=== PATIENT | female | born 1990 | race Caucasian/White ===

== ENCOUNTER 2017-08-02 21:08 | Emergency (ER) | payer OTHER ==
[2017-08-02 21:28] VITALS: RESP 18; TEMP 97.8
[2017-08-02 21:50] LABS: Appearance,Urine Cloudy (Clear); Bacteria,Urine Few /hpf; Bilirubin,Urine Negative (Negative); Blood,Urine Trace (Negative); Color,Urine Yellow; Glucose,Urine (UA) Negative (Negative); Ketones,Urine Negative (Negative); Leukocyte Esterase,Urine Small (Negative); Mucus,Urine Occasional /hpf; Nitrite,Urine Positive (Negative); PH, Urine 5.5 (5.0-8.0); Protein,Urine 1+ (Negative); RBC,Urine 4 /hpf (0-5); Specific Gravity,Urine 1.025 (1.001-1.035); Squamous Epithelial Cell,Urine 4 /hpf (0-4); Urobilinogen,Urine <2.0 mg/dL (<2.0); WBC,Urine 12 /hpf (0-5)
--- NOTE | 2017-08-02 22:49 | ED ---
Abdominal Pain HPI - General Chief Complaint: Abdominal Pain Stated Complaint: abdominal pain Time Seen by Provider: 08/02/17 22:31 Source: patient Mode of arrival: ambulatory Limitations: no limitations - History of Present Illness Initial Comments: 26-year-old female patient presented to the emergency department today for complaints of midepigastric abdominal pain. Patient states she has been having this pain on and off for the last 2-3 weeks. Patient states that the pain as a cramping type sensation. States that she does become nauseated and has decreased appetite when the pain is present. Patient states the pain does start after eating. Patient denies any vomiting with this. States she has alternating constipation and diarrhea. Denies any hematochezia or melena. Patient states that she has been urinating frequently. She denies any hematuria or dysuria. Denies any fevers or chills. Patient denies any recent rash, shortness breath, chest pain, back pain, numbness, tingling, dizziness, weakness, headache, visual changes, or any other complaints. - Related Data Previous Rx's Medication Instructions Recorded Pantoprazole Sodium [Protonix] 40 mg PO DAILY #30 tablet. 08/03/17 Sulfamethoxazole/Trimethoprim 1 each PO BID #14 tablet 08/03/17 [Bactrim DS 800-160 mg] Allergies Allergy/AdvReac Type Severity Reaction Status Date / Time No Known Allergies Allergy Verified 08/02/17 22:27 Review of Systems ROS Statement: Those systems with pertinent positive or pertinent negative responses have been documented in the HPI. ROS Other: All systems not noted in ROS Statement are negative. 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 Vital signs upon presentation are temperature 97.8F, pulse 94, respirations 18, blood pressure 159/90, pulse ox 98% on room air.) Eye exam: Present: normal appearance, PERRL, EOMI. Absent: scleral icterus, conjunctival injection, periorbital swelling ENT exam: Present: normal exam, normal oropharynx, mucous membranes moist Respiratory exam: Present: normal lung sounds bilaterally. Absent: respiratory distress, wheezes, rales, rhonchi, stridor Cardiovascular Exam: Present: regular rate, normal rhythm, normal heart sounds. Absent: systolic murmur, diastolic murmur, rubs, gallop, clicks GI/Abdominal exam: Present: soft, tenderness (Midepigastric tenderness), normal bowel sounds. Absent: distended, guarding, rebound, rigid Neurological exam: Present: alert, oriented X3, CN II-XII intact Psychiatric exam: Present: normal affect, normal mood Skin exam: Present: warm, dry, intact, normal color. Absent: rash Course Vital Signs 08/02/17 08/02/17 08/03/17 21:23 23:15 00:51 Temperature 97.8 F Pulse Rate 94 83 Respiratory 18 18 18 Rate Blood Pressure 159/90 142/61 O2 Sat by Pulse 98 98 Oximetry Medical Decision Making - Medical Decision Making 26-year-old female patient presented to the emergency department today with complaints of upper abdominal pain that is worse with eating. Patient also is experiencing some mild nausea. Physical examination did reveal some mild midepigastric tenderness. Labs reviewed and are unremarkable. Amylase and lipase were normal. Liver enzymes are normal. Patient is feeling somewhat better after receiving medications in the emergency department. I did discuss findings and results with the patient. I discussed as her labs are normal that her symptoms are most likely related to a gastritis. We will give her proton pump inhibitor to take for 30 days. She is instructed to follow-up with her primary care physician for recheck in 1-2 days. Return parameters were discussed in detail. She verbalizes understanding and agrees with this plan. - Lab Data Result diagrams: 08/02/17 23:09 08/02/17 23:09 Lab Results 08/02/17 08/02/17 08/02/17 Range/Units 21:28 21:28 23:09 WBC (3.8-10.6) k/uL RBC (3.80-5.40) m/uL Hgb (11.4-16.0) gm/dL Hct (34.0-46.0) % MCV (80.0-100.0) fL MCH (25.0-35.0) pg MCHC (31.0-37.0) g/dL RDW (11.5-15.5) % Plt Count (150-450) k/uL Neutrophils % % Lymphocytes % % Monocytes % % Eosinophils % % Basophils % % Neutrophils # (1.3-7.7) k/uL Lymphocytes # (1.0-4.8) k/uL Monocytes # (0-1.0) k/uL Eosinophils # (0-0.7) k/uL Basophils # (0-0.2) k/uL Sodium 144 (137-145) mmol/L Potassium 4.2 (3.5-5.1) mmol/L Chloride 101 (98-107) mmol/L Carbon Dioxide 27 (22-30) mmol/L Anion Gap 16 mmol/L BUN 16 (7-17) mg/dL Creatinine 0.78 (0.52-1.04) mg/dL Est GFR (CKD-EPI)AfAm >90 (>60 ml/min/1.73 sqM) Est GFR (CKD-EPI)NonAf >90 (>60 ml/min/1.73 sqM) Glucose 100 H (74-99) mg/dL Calcium 9.9 (8.4-10.2) mg/dL Total Bilirubin 0.6 (0.2-1.3) mg/dL AST 25 (14-36) U/L ALT 33 (9-52) U/L Alkaline Phosphatase 108 (38-126) U/L Total Protein 7.2 (6.3-8.2) g/dL Albumin 4.5 (3.5-5.0) g/dL Amylase 47 (30-110) U/L Lipase 85 (23-300) U/L Urine Color Yellow Urine Appearance Cloudy H (Clear) Urine pH 5.5 (5.0-8.0) Ur Specific [place] 1.025 (1.001-1.035) Urine Protein 1+ H (Negative) Urine Glucose (UA) Negative (Negative) Urine Ketones Negative (Negative) Urine Blood Trace H (Negative) Urine Nitrite Positive H (Negative) Urine Bilirubin Negative (Negative) Urine Urobilinogen <2.0 (<2.0) mg/dL Ur Leukocyte Esterase Small H (Negative) Urine RBC 4 (0-5) /hpf Urine WBC 12 H (0-5) /hpf Ur Squamous Epith Cells 4 (0-4) /hpf Urine Bacteria Few H (None) /hpf Urine Mucus Occasional H (None) /hpf Urine HCG, Qual Not Detected (Not Detectd) 08/02/17 Range/Units 23:09 WBC 8.3 (3.8-10.6) k/uL RBC 4.37 (3.80-5.40) m/uL Hgb 12.4 (11.4-16.0) gm/dL Hct 36.4 (34.0-46.0) % MCV 83.3 (80.0-100.0) fL MCH 28.4 (25.0-35.0) pg MCHC 34.1 (31.0-37.0) g/dL RDW 13.3 (11.5-15.5) % Plt Count 255 (150-450) k/uL Neutrophils % 65 % Lymphocytes % 26 % Monocytes % 5 % Eosinophils % 2 % Basophils % 0 % Neutrophils # 5.5 (1.3-7.7) k/uL Lymphocytes # 2.1 (1.0-4.8) k/uL Monocytes # 0.4 (0-1.0) k/uL Eosinophils # 0.2 (0-0.7) k/uL Basophils # 0.0 (0-0.2) k/uL Sodium (137-145) mmol/L Potassium (3.5-5.1) mmol/L Chloride (98-107) mmol/L Carbon Dioxide (22-30) mmol/L Anion Gap mmol/L BUN (7-17) mg/dL Creatinine (0.52-1.04) mg/dL Est GFR (CKD-EPI)AfAm (>60 ml/min/1.73 sqM) Est GFR (CKD-EPI)NonAf (>60 ml/min/1.73 sqM) Glucose (74-99) mg/dL Calcium (8.4-10.2) mg/dL Total Bilirubin (0.2-1.3) mg/dL AST (14-36) U/L ALT (9-52) U/L Alkaline Phosphatase (38-126) U/L Total Protein (6.3-8.2) g/dL Albumin (3.5-5.0) g/dL Amylase (30-110) U/L Lipase (23-300) U/L Urine Color Urine Appearance (Clear) Urine pH (5.0-8.0) Ur Specific [place] (1.001-1.035) Urine Protein (Negative) Urine Glucose (UA) (Negative) Urine Ketones (Negative) Urine Blood (Negative) Urine Nitrite (Negative) Urine Bilirubin (Negative) Urine Urobilinogen (<2.0) mg/dL Ur Leukocyte Esterase (Negative) Urine RBC (0-5) /hpf Urine WBC (0-5) /hpf Ur Squamous Epith Cells (0-4) /hpf Urine Bacteria (None) /hpf Urine Mucus (None) /hpf Urine HCG, Qual (Not Detectd) - Radiology Data Radiology results: report reviewed, image reviewed 3 views of the abdomen were obtained. Bowel gas pattern is normal. There is no sign of intestinal obstruction or pneumoperitoneum. Fecal pattern is normal. Lung bases are clear. There are no pathologic calcifications. Impression by Dr. Barclay shows nonacute abdomen with no change. Disposition Clinical Impression: Urinary tract infection, Abdominal pain Disposition: HOME SELF-CARE Condition: Good Instructions: Gastritis (ED), Urinary Tract Infection in Women (ED), Abdominal Pain (ED) Additional Instructions: Avoid spicy or greasy foods. Avoid caffeine or sodas. Take medications as directed. Follow-up with your primary care physician for recheck in 1-2 days. Return here immediately for any new, worsening, or concerning symptoms. Prescriptions: Pantoprazole Sodium [Protonix] 40 mg PO DAILY #30 tablet. Sulfamethoxazole/Trimethoprim [Bactrim DS 800-160 mg] 1 each PO BID #14 tablet Is patient prescribed a controlled substance at d/c from ED?: No Referrals: Kendell Foote MD [Primary Care Provider] - 1-2 days Time of Disposition: 00:58
[2017-08-02 23:20] LABS: Basophils % (A) 0 %; Eosinophils # (A) 0.2 k/uL (0-0.7); Eosinophils % (A) 2 %; HCT 36.4 % (34.0-46.0); HGB 12.4 gm/dL (11.4-16.0); Lymphocytes # (A) 2.1 k/uL (1.0-4.8); Lymphocytes % (A) 26 %; MCH 28.4 pg (25.0-35.0); MCHC 34.1 g/dL (31.0-37.0); MCV 83.3 fL (80.0-100.0); Mean Platelet Volume 7.3; Monocytes # (A) 0.4 k/uL (0-1.0); Monocytes % (A) 5 %; Neutrophils # (A) 5.5 k/uL (1.3-7.7); Neutrophils % (A) 65 %; Platelet Count 255 k/uL (150-450); RBC 4.37 m/uL (3.80-5.40); RDW 13.3 % (11.5-15.5); WBC 8.3 k/uL (3.8-10.6)
[2017-08-02 23:47] LABS: ALT 33 U/L (9-52); AST 25 U/L (14-36); Albumin 4.5 g/dL (3.5-5.0); Alkaline Phosphatase 108 U/L (38-126); Amylase 47 U/L (30-110); Anion Gap 16 mmol/L; Blood Urea Nitrogen 16 mg/dL (7-17); Calcium 9.9 mg/dL (8.4-10.2); Carbon Dioxide 27 mmol/L (22-30); Chloride 101 mmol/L (98-107); Glucose 100 mg/dL (74-99); Lipase 85 U/L (23-300); Potassium 4.2 mmol/L (3.5-5.1); Sodium 144 mmol/L (137-145); Total Bilirubin 0.6 mg/dL (0.2-1.3); Total Protein 7.2 g/dL (6.3-8.2)
--- NOTE | 2017-08-03 00:04 | XR ---
EXAMINATION TYPE: XR KUB DATE OF EXAM: 08/02/2017 COMPARISON: 08/05/2005 HISTORY: Pain TECHNIQUE: 3 views FINDINGS: Bowel gas pattern is normal. There is no sign of intestinal obstruction or pneumoperitoneum . Fecal pattern is normal. Lung bases are clear. There are no pathologic calcifications. IMPRESSION: Nonacute abdomen. No change.
[2017-08-03 00:52] VITALS: BP 142/61; PULSE 83
[2017-08-03] MEDS ORDERED: cefTRIAXone IN SWFI 1,000 MG/10 ML SYRINGE IVP STA (00:56)
== END 2017-08-03 01:26 | disposition home or self-care (01) ==
LOC: EC 21:08
DX: N39.0 Urinary tract infection, site not specified (principal); R10.13 Epigastric pain; R11.0 Nausea; K59.00 Constipation, unspecified; R19.7 Diarrhea, unspecified; R63.8 Other symptoms and signs concerning food and fluid intake; E66.9 Obesity, unspecified; Z98.890 Other specified postprocedural states; Z68.42 Body mass index [BMI] 45.0-49.9, adult
CPT/HCPCS: 36415; 80053; 82150; 83690; 85025; 81001; 81025; 74018; 99284; 96374; J0696

== ENCOUNTER 2017-11-04 21:19 | Emergency (ER) | payer OTHER ==
[2017-11-04] MEDS ORDERED: IPRATROPIUM-ALBUTEROL 3 ML NEB INHALATION STA (22:27)
[2017-11-04] MEDS ORDERED: methylPREDNISolone SOD SUCCI 125 MG/2 ML VIAL IV STA (22:27)
[2017-11-04] MEDS ORDERED: SODIUM CHLORIDE 0.9% 500 ML IV STA (22:27)
--- NOTE | 2017-11-04 22:30 | ED ---
SOB HPI - General Chief Complaint: Shortness of Breath Stated Complaint: Cough Time Seen by Provider: 11/04/17 22:11 Source: patient Mode of arrival: ambulatory Limitations: no limitations - History of Present Illness Initial Comments: 26-year-old female patient presents to the emergency department today for evaluation of cough and difficulty breathing. Patient states that she has had symptoms for the last 2 weeks. Her cough seems to be getting worse. States that she has been seen and evaluated twice at urgent care and has been on 2 courses of Keflex which she has completed. Patient states she did complete one course of steroids, and has had no improvement in her symptoms. Patient states that now she feels chest heaviness and difficulty breathing. States that it gets worse with activity. Denies any fevers or chills. States that she has lost her voice. Patient is also reporting no period since April, states she has taken tests which have been negative. Patient's that she does not have insurance [facility] has no primary care physician to follow-up with. Patient denies any recent rash, chest pain, abdominal pain, nausea, vomiting, diarrhea, constipation, back pain, numbness, tingling, dizziness, weakness, hematuria, dysuria, urinary urgency, urinary frequency, headache, visual changes , or any other complaints. - Related Data Previous Rx's Medication Instructions Recorded Pantoprazole Sodium [Protonix] 40 mg PO DAILY #30 tablet. 08/03/17 Sulfamethoxazole/Trimethoprim 1 each PO BID #14 tablet 08/03/17 [Bactrim DS 800-160 mg] Azithromycin [Zithromax Z-pack] 0 mg PO DIRECTED #6 tab 11/05/17 Promethaz-Cod 6.25-10 mg/5 ml 5 ml PO Q4HR PRN 3 Days #90 ml 11/05/17 [Phenergan with Codeine] predniSONE 50 mg PO DAILY #5 tablet 11/05/17 Allergies Allergy/AdvReac Type Severity Reaction Status Date / Time No Known Allergies Allergy Verified 11/04/17 22:04 Review of Systems ROS Statement: Those systems with pertinent positive or pertinent negative responses have been documented in the HPI. ROS Other: All systems not noted in ROS Statement are negative. 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 Vital signs upon presentation are temperature 98.5, pulse 104, respirations 20, blood pressure 135/80, pulse ox 94% on room air.) Eye exam: Present: normal appearance, PERRL, EOMI. Absent: scleral icterus, conjunctival injection, periorbital swelling ENT exam: Present: normal exam, normal oropharynx, mucous membranes moist, TM's normal bilaterally Neck exam: Present: normal inspection. Absent: tenderness, meningismus, lymphadenopathy Respiratory exam: Present: wheezes (Tight expiratory wheezing to all posterior lung espinoza). Absent: respiratory distress, rales, rhonchi, stridor Cardiovascular Exam: Present: normal rhythm, tachycardia, normal heart sounds. Absent: systolic murmur, diastolic murmur, rubs, gallop, clicks GI/Abdominal exam: Present: soft, normal bowel sounds. Absent: distended, tenderness, guarding, rebound, rigid Neurological exam: Present: alert, oriented X3, CN II-XII intact Psychiatric exam: Present: normal affect, normal mood Skin exam: Present: warm, dry, intact, normal color. Absent: rash Course Vital Signs 11/04/17 11/04/17 11/04/17 22:01 22:45 22:51 Temperature 98.5 F Pulse Rate 104 H 104 H 108 H Respiratory 20 Rate Blood Pressure 135/80 O2 Sat by Pulse 94 L Oximetry 11/05/17 00:39 Temperature 97.1 F L Pulse Rate 100 Respiratory 24 Rate Blood Pressure 123/72 O2 Sat by Pulse 99 Oximetry Medical Decision Making - Medical Decision Making 26-year-old female patient presented to the emergency department today for complaints of shortness of breath and cough. Physical examination did reveal tight expiratory wheezing to all posterior lung espinoza. Labs reviewed and were unremarkable. Chest x-ray was obtained and showed no acute cardiopulmonary process. Given patient's symptoms we will treat her for acute bronchitis with prednisone, azithromycin, and cough medication. She does have an inhaler at home which I told her to use 2 puffs every 4-6 hours as needed. She'll be given cough medication as well. She is instructed to follow-up with her primary care physician for recheck in 1-2 days. Return parameters discussed in detail. She verbalizes understanding and agrees with this plan. - Lab Data Result diagrams: 11/04/17 23:50 11/04/17 23:50 Lab Results 11/04/17 11/04/17 11/04/17 Range/Units 23:45 23:45 23:50 WBC 10.7 H (3.8-10.6) k/uL RBC 4.57 (3.80-5.40) m/uL Hgb 12.2 (11.4-16.0) gm/dL Hct 37.6 (34.0-46.0) % MCV 82.4 (80.0-100.0) fL MCH 26.7 (25.0-35.0) pg MCHC 32.4 (31.0-37.0) g/dL RDW 14.2 (11.5-15.5) % Plt Count 222 (150-450) k/uL Neutrophils % 63 % Lymphocytes % 28 % Monocytes % 4 % Eosinophils % 3 % Basophils % 0 % Neutrophils # 6.7 (1.3-7.7) k/uL Lymphocytes # 3.0 (1.0-4.8) k/uL Monocytes # 0.5 (0-1.0) k/uL Eosinophils # 0.3 (0-0.7) k/uL Basophils # 0.0 (0-0.2) k/uL D-Dimer (<0.60) mg/L FEU Sodium (137-145) mmol/L Potassium (3.5-5.1) mmol/L Chloride (98-107) mmol/L Carbon Dioxide (22-30) mmol/L Anion Gap mmol/L BUN (7-17) mg/dL Creatinine (0.52-1.04) mg/dL Est GFR (CKD-EPI)AfAm (>60 ml/min/1.73 sqM) Est GFR (CKD-EPI)NonAf (>60 ml/min/1.73 sqM) Glucose (74-99) mg/dL Calcium (8.4-10.2) mg/dL Total Bilirubin (0.2-1.3) mg/dL AST (14-36) U/L ALT (9-52) U/L Alkaline Phosphatase (38-126) U/L Total Protein (6.3-8.2) g/dL Albumin (3.5-5.0) g/dL Urine Color Yellow Urine Appearance Clear (Clear) Urine pH 5.5 (5.0-8.0) Ur Specific [place] 1.022 (1.001-1.035) Urine Protein Trace H (Negative) Urine Glucose (UA) Negative (Negative) Urine Ketones Negative (Negative) Urine Blood Negative (Negative) Urine Nitrite Negative (Negative) Urine Bilirubin Negative (Negative) Urine Urobilinogen 4.0 (<2.0) mg/dL Ur Leukocyte Esterase Moderate H (Negative) Urine RBC 2 (0-5) /hpf Urine WBC 7 H (0-5) /hpf Ur Squamous Epith Cells 4 (0-4) /hpf Urine Mucus Rare H (None) /hpf Urine HCG, Qual Not Detected (Not Detectd) 11/04/17 11/04/17 Range/Units 23:50 23:50 WBC (3.8-10.6) k/uL RBC (3.80-5.40) m/uL Hgb (11.4-16.0) gm/dL Hct (34.0-46.0) % MCV (80.0-100.0) fL MCH (25.0-35.0) pg MCHC (31.0-37.0) g/dL RDW (11.5-15.5) % Plt Count (150-450) k/uL Neutrophils % % Lymphocytes % % Monocytes % % Eosinophils % % Basophils % % Neutrophils # (1.3-7.7) k/uL Lymphocytes # (1.0-4.8) k/uL Monocytes # (0-1.0) k/uL Eosinophils # (0-0.7) k/uL Basophils # (0-0.2) k/uL D-Dimer 0.34 (<0.60) mg/L FEU Sodium 141 (137-145) mmol/L Potassium 4.0 (3.5-5.1) mmol/L Chloride 106 (98-107) mmol/L Carbon Dioxide 25 (22-30) mmol/L Anion Gap 10 mmol/L BUN 12 (7-17) mg/dL Creatinine 0.70 (0.52-1.04) mg/dL Est GFR (CKD-EPI)AfAm >90 (>60 ml/min/1.73 sqM) Est GFR (CKD-EPI)NonAf >90 (>60 ml/min/1.73 sqM) Glucose 103 H (74-99) mg/dL Calcium 9.5 (8.4-10.2) mg/dL Total Bilirubin 0.6 (0.2-1.3) mg/dL AST 22 (14-36) U/L ALT 37 (9-52) U/L Alkaline Phosphatase 115 (38-126) U/L Total Protein 7.1 (6.3-8.2) g/dL Albumin 4.4 (3.5-5.0) g/dL Urine Color Urine Appearance (Clear) Urine pH (5.0-8.0) Ur Specific [place] (1.001-1.035) Urine Protein (Negative) Urine Glucose (UA) (Negative) Urine Ketones (Negative) Urine Blood (Negative) Urine Nitrite (Negative) Urine Bilirubin (Negative) Urine Urobilinogen (<2.0) mg/dL Ur Leukocyte Esterase (Negative) Urine RBC (0-5) /hpf Urine WBC (0-5) /hpf Ur Squamous Epith Cells (0-4) /hpf Urine Mucus (None) /hpf Urine HCG, Qual (Not Detectd) - EKG Data -: EKG Interpreted by Co EKG Comments: EKG obtained at 2356 shows normal sinus rhythm with ventricular rate of 94, ID interval 160, QRS duration 70, QT 346, QTc 432. No evidence of ST elevation or depression. - Radiology Data Radiology results: report reviewed, image reviewed Two-view x-ray of the chest was obtained. Heart and mediastinum are normal. Lungs are clear. Diaphragm is normal. Bony thorax appears normal. Impression by Dr. Barclay shows normal chest. Disposition Clinical Impression: Acute bronchitis Disposition: HOME SELF-CARE Condition: Good Instructions: Acute Bronchitis (ED) Additional Instructions: Use home inhaler 2 puffs every 4 hours. Complete medications as directed. Follow-up with the primary care physician or the [facility] for recheck in 1- 2 days. Return here immediately for any new, worsening, or concerning symptoms. [facility] [address] [address] Prescriptions: Azithromycin [Zithromax Z-pack] 0 mg PO DIRECTED #6 tab predniSONE 50 mg PO DAILY #5 tablet Promethaz-Cod 6.25-10 mg/5 ml [Phenergan with Codeine] 5 ml PO Q4HR PRN 3 Days # 90 ml PRN Reason: Cough Is patient prescribed a controlled substance at d/c from ED?: Yes When asked, does pt state using other controlled substances?: No If prescribed controlled substance>3 days was MAPS reviewed?: Prescribed <3 Days Referrals: Kendell Foote MD [Primary Care Provider] - 1-2 days [facility] [[facility] - 1-2 days Time of Disposition: 00:58
[2017-11-04 23:52] LABS: Appearance,Urine Clear (Clear); Bilirubin,Urine Negative (Negative); Blood,Urine Negative (Negative); Color,Urine Yellow; Glucose,Urine (UA) Negative (Negative); Ketones,Urine Negative (Negative); Leukocyte Esterase,Urine Moderate (Negative); Mucus,Urine Rare /hpf; Nitrite,Urine Negative (Negative); PH, Urine 5.5 (5.0-8.0); Protein,Urine Trace (Negative); RBC,Urine 2 /hpf (0-5); Specific Gravity,Urine 1.022 (1.001-1.035); Squamous Epithelial Cell,Urine 4 /hpf (0-4); WBC,Urine 7 /hpf (0-5)
[2017-11-05 00:03] LABS: Basophils % (A) 0 %; Eosinophils # (A) 0.3 k/uL (0-0.7); Eosinophils % (A) 3 %; HCT 37.6 % (34.0-46.0); HGB 12.2 gm/dL (11.4-16.0); Lymphocytes % (A) 28 %; MCH 26.7 pg (25.0-35.0); MCHC 32.4 g/dL (31.0-37.0); MCV 82.4 fL (80.0-100.0); Mean Platelet Volume 7.2; Monocytes # (A) 0.5 k/uL (0-1.0); Monocytes % (A) 4 %; Neutrophils # (A) 6.7 k/uL (1.3-7.7); Neutrophils % (A) 63 %; Platelet Count 222 k/uL (150-450); RBC 4.57 m/uL (3.80-5.40); RDW 14.2 % (11.5-15.5); WBC 10.7 k/uL (3.8-10.6)
--- NOTE | 2017-11-05 00:10 | XR ---
EXAMINATION TYPE: XR chest 2V DATE OF EXAM: 11/05/2017 COMPARISON: NONE HISTORY: Cough TECHNIQUE: Frontal and lateral views of the chest are obtained. FINDINGS: Heart and mediastinum are normal. Lungs are clear. Diaphragm is normal. Bony thorax appear s normal. IMPRESSION: Normal chest
[2017-11-05 00:11] LABS: ALT 37 U/L (9-52); AST 22 U/L (14-36); Albumin 4.4 g/dL (3.5-5.0); Alkaline Phosphatase 115 U/L (38-126); Anion Gap 10 mmol/L; Blood Urea Nitrogen 12 mg/dL (7-17); Calcium 9.5 mg/dL (8.4-10.2); Carbon Dioxide 25 mmol/L (22-30); Chloride 106 mmol/L (98-107); Glucose 103 mg/dL (74-99); Sodium 141 mmol/L (137-145); Total Bilirubin 0.6 mg/dL (0.2-1.3); Total Protein 7.1 g/dL (6.3-8.2)
[2017-11-05 00:43] VITALS: BP 123/72; PULSE 100; RESP 24; TEMP 97.1
[2017-11-05] MEDS ORDERED: PROMETHAZ-COD 6.25-10 MG/5 ML 5 ML CUP PO STA (00:55)
== END 2017-11-05 01:07 | disposition home or self-care (01) ==
LOC: EC 21:19
DX: J20.9 Acute bronchitis, unspecified (principal); R00.0 Tachycardia, unspecified
CPT/HCPCS: 36415; 94640; 93005; 85379; 80053; 85025; 81001; 81025; 71046; 99285; 96374; J2930

== ENCOUNTER 2018-11-26 15:38 | Emergency (ER) | payer OTHER ==
[2018-11-26 15:42] VITALS: BP 149/81; PULSE 85; RESP 18; TEMP 97.7
--- NOTE | 2018-11-26 16:05 | ED ---
Lower Extremity Injury HPI - General Chief Complaint: Extremity Injury, Lower Stated Complaint: Ankle injury Time Seen by Provider: 11/26/18 15:49 Source: patient, RN notes reviewed Mode of arrival: wheelchair Limitations: no limitations - History of Present Illness Initial Comments: 27-year-old female presents emergency Department chief complaint of left ankle injury. Patient states that she stepped on a hole and rolled her ankle and felt the ground. No knee pain no hip pain. She has had a prior fracture of her ankle but not sure exactly what ankle. Patient denies any paresthesias no foot pain. Patient did apply ice and does not want anything for pain this time. - Related Data Previous Rx's Medication Instructions Recorded Pantoprazole Sodium [Protonix] 40 mg PO DAILY #30 tablet. 08/03/17 Sulfamethoxazole/Trimethoprim 1 each PO BID #14 tablet 08/03/17 [Bactrim DS 800-160 mg] Azithromycin [Zithromax Z-pack] 0 mg PO DIRECTED #6 tab 11/05/17 Promethaz-Cod 6.25-10 mg/5 ml 5 ml PO Q4HR PRN 3 Days #90 ml 11/05/17 [Phenergan with Codeine] predniSONE 50 mg PO DAILY #5 tablet 11/05/17 Allergies Allergy/AdvReac Type Severity Reaction Status Date / Time No Known Allergies Allergy Verified 11/04/17 22:04 Review of Systems ROS Statement: Those systems with pertinent positive or pertinent negative responses have been documented in the HPI. ROS Other: All systems not noted in ROS Statement are negative. 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 Absent: tenderness, meningismus, lymphadenopathy Respiratory exam: Present: normal lung sounds bilaterally. Absent: respiratory distress, wheezes, rales, rhonchi, stridor Cardiovascular Exam: Present: regular rate, normal rhythm, normal heart sounds. Absent: systolic murmur, diastolic murmur, rubs, gallop, clicks Extremities exam: Present: other (Left ankle there is moderate swelling lateral malleoli region, tenderness with palpation there is no medial malar swelling or tenderness no foot tenderness no proximal tib-fib tenderness pulses are equal bilaterally) Neurological exam: Present: reflexes normal. Absent: motor sensory deficit Skin exam: Present: warm, dry, intact, normal color. Absent: rash Course Vital Signs 11/26/18 15:40 Temperature 97.7 F Pulse Rate 85 Respiratory 18 Rate Blood Pressure 149/81 O2 Sat by Pulse 99 Oximetry Procedures - Orthopedic Splinting/Casting Injury #1 Side: left Lower Extremity Injury Location: short leg, ankle Lower Extremity Immobilizer: posterior splint, synthetic pre-padded splint Other Orthopedic Equipment: crutches Medical Decision Making - Medical Decision Making 27 show female presented for left ankle injury. Patient has a distal fibular fracture she was splinted in a long leg and will use crutches. Return parameters were discussed. Disposition Clinical Impression: Closed left ankle fracture Disposition: HOME SELF-CARE Condition: Stable Instructions (If sedation given, give patient instructions): Ankle Fracture (ED) Additional Instructions: Please return to the Emergency Department if symptoms worsen or any other concerns. Is patient prescribed a controlled substance at d/c from ED?: No Referrals: Kendell Foote MD [Primary Care Provider] - 1-2 days Felipe Ruiz MD [Medical Doctor] - 1-2 days Time of Disposition: 16:37
--- NOTE | 2018-11-26 16:40 | XR ---
EXAMINATION TYPE: XR ankle complete LT DATE OF EXAM: 11/26/2018 COMPARISON: NONE HISTORY: Pain after a fall. TECHNIQUE: 3 views FINDINGS: There is nondisplaced transverse fracture of the distal fibula. There is lateral soft tissu e swelling. Ankle mortise is anatomic. There is plantar calcaneal spurring. IMPRESSION: Nondisplaced lateral malleolus fracture. Soft tissue swelling.
== END 2018-11-26 16:56 | disposition home or self-care (01) ==
LOC: EC 15:38
DX: S82.65XA Nondisplaced fracture of lateral malleolus of left fibula, initial encounter for closed fracture (principal); X50.1XXA Overexertion from prolonged static or awkward postures, initial encounter; Y93.01 Activity, walking, marching and hiking
CPT/HCPCS: 29515; 99283

== ENCOUNTER 2020-10-07 13:25 | Emergency (ER) | payer BC, OTHER ==
[2020-10-07 13:28] VITALS: BP 116/71; PULSE 86; RESP 20; TEMP 98.3
[2020-10-07] MEDS ORDERED: LIDOCAINE 1% INJ 10MG/ML (20 ML MDV) SQ ONE (13:56)
--- NOTE | 2020-10-07 14:19 | ED ---
Wound/Laceration HPI - General Chief Complaint: Wound/Laceration Stated Complaint: R Leg Lac Time Seen by Provider: 10/07/20 13:39 Source: patient Mode of arrival: ambulatory Limitations: no limitations - History of Present Illness Initial Comments: 29-year-old male presents to emergency Department with a chief complaint laceration that occurred about one hour prior to arrival. Patient reports she was lacerated the anterior aspect of the right leg after she was going over a Hitch. Her tetanus is up-to-date. She reports minimal pain at the laceration site. Denies alleviate or aggravate factors. - Related Data Previous Rx's Medication Instructions Recorded Pantoprazole Sodium [Protonix] 40 mg PO DAILY #30 tablet. 08/03/17 Sulfamethoxazole/Trimethoprim 1 each PO BID #14 tablet 08/03/17 [Bactrim DS 800-160 mg] Azithromycin [Zithromax Z-pack (6 0 mg PO DIRECTED #6 tab 11/05/17 tabs)] Promethaz-Cod 6.25-10 mg/5 ml 5 ml PO Q4HR PRN 3 Days #90 ml 11/05/17 [Phenergan with Codeine] predniSONE 50 mg PO DAILY #5 tablet 11/05/17 Allergies Allergy/AdvReac Type Severity Reaction Status Date / Time No Known Allergies Allergy Verified 10/07/20 13:28 Review of Systems ROS Statement: Those systems with pertinent positive or pertinent negative responses have been documented in the HPI. ROS Other: All systems not noted in ROS Statement are negative. 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 Absent: respiratory distress Cardiovascular Exam: Present: regular rate, normal rhythm, normal heart sounds Extremities exam: Present: full ROM, normal capillary refill. Absent: normal inspection (1 cm regular laceration on the anterior aspect of right lower extremity), tenderness, pedal edema, joint swelling Back exam: Present: normal inspection, full ROM Neurological exam: Present: alert, oriented X3 Psychiatric exam: Present: normal affect, normal mood Skin exam: Present: warm, dry, intact, normal color Course Vital Signs 10/07/20 13:26 Temperature 98.3 F Pulse Rate 86 Respiratory 20 Rate Blood Pressure 116/71 O2 Sat by Pulse 98 Oximetry Procedures - Laceration Laceration #1 Consent Obtained: verbal consent Indication: laceration Site: lower extremity Size (cm): 2 Description: irregular, clean Depth: simple, single layer Sedation/Analgesia: none Anesthetic Used: lidocaine 1% Anesthesia Technique: local infiltration Amount (mls): 2 Pre-repair: irrigated extensively, deep structures intact Type of Sutures: nylon Size of Sutures: 4-0 Number of Sutures: 3 Technique: simple, interrupted Patient Tolerated Procedure: well, no complications Medical Decision Making - Medical Decision Making 21-year-old male presents to emergency Department with a chief complaint laceration. Laceration site was thoroughly irrigated and repaired with 3 sutures. Patient tolerated procedure well. Advised to return for suture removal. Case discussed with physician. Disposition Clinical Impression: Laceration Disposition: HOME SELF-CARE Condition: Stable Instructions (If sedation given, give patient instructions): Care For Your Stitches (DC), Laceration (DC) Is patient prescribed a controlled substance at d/c from ED?: No Referrals: Shagufta Cordoba MD [Primary Care Provider] - 1-2 days Time of Disposition: 14:18
== END 2020-10-07 14:31 | disposition home or self-care (01) ==
LOC: EC 13:25
DX: S81.811A Laceration without foreign body, right lower leg, initial encounter (principal); X58.XXXA Exposure to other specified factors, initial encounter
CPT/HCPCS: 99282; 12001; 96372; J2001

== ENCOUNTER → 2024-04-27 | Outpatient (CLI) | payer BC ==
--- NOTE | 2024-04-27 08:37 | US ---
EXAMINATION TYPE: US abdomen limited DATE OF EXAM: 04/27/2024 COMPARISON: NONE CLINICAL INDICATION: Female, 33 years old with history of R10.13 EPIGASTRIC; RUQ pain limited due to body habitus. TECHNIQUE: Grayscale and color Doppler imaging of the right upper quadrant was performed. FINDINGS: EXAM MEASUREMENTS: Liver Length: 22.2 cm Gallbladder Wall: .1 cm CBD: .3 cm Right Kidney: 11.5 x 3.5 x 4.9 cm SPECIAL EVENTS ASSISTANT NOTES: Pancreas: Obscured by bowel gas Liver: Increased attenuation hepatomegaly. Gallbladder: No stones seen Evidence for sonographic Mendiola's sign: No CBD: wnl Right Kidney: No hydronephrosis or masses seen IMPRESSION: No evidence for acute process. [facility] Pradeep Steward, , 04/27/2024 8:34 AM
== END | disposition home or self-care (01) ==
LOC: RADUSWWP 07:27
PROVIDERS: ATTEND Family Medicine
DX: R10.13 Epigastric pain (principal); R16.0 Hepatomegaly, not elsewhere classified
CPT/HCPCS: 76705

== ENCOUNTER → 2024-06-05 | Outpatient (CLI) | payer BC | END | disposition home or self-care (01) | LOC: RADMRIMAIN 16:34 | PROVIDERS: ATTEND Family Medicine | DX: Z53.9 Procedure and treatment not carried out, unspecified reason (principal) ==